=== PATIENT | male | born 1975 | race Caucasian/White ===

== ENCOUNTER 2018-01-26 20:27 | Emergency (ER) | payer OTHER, SELFPAY ==
[2018-01-26 20:28] VITALS: BP 140/89; PULSE 87; RESP 14; TEMP 37.5; O2SAT 97; BMI 24.7
--- NOTE | 2018-01-26 20:58 | ED.VISSUMM ---
- ER Visit Summary Date of Service: 01/26/18 Chief Complaint: Left index finger distal tip injury History of Present Illness: The patient is a 42 M [id number]. No significant past medical history. No significant prior left hand injury or surgery. Patient was moving pieces of metal equipment today at a friend's shop in [place] when he got his left index finger pinned against 2 pieces of metal and avulsed the tissue and the nail at the tip of the left index finger. No other injuries. This occurred around 4 PM today. This was not work-related. Patient has no idea when his last tetanus shot was and believes is been greater than 10 years. Physical Examination: Well-appearing middle-age male. Vital signs are stable afebrile. HEENT exam unremarkable. Neck nontender. Lungs clear to auscultation bilaterally. Heart regular rhythm no murmur. Abdomen soft nontender. Patient is moving all 4 extremities. They are neurovascularly intact. Specifically left index finger on the ulnar side of the tip of the left index finger he is avulsed the entire left index finger nail and most of the tissue on the dorsal surface and ulnar side of the tip of his left index finger. There is exposed bone. He has full flexion and extension of the left index finger. Also the wrist and hand. He has normal touch sensation. No foreign object seen. Neurologic exam normal. Test Results: Two-view x-ray left index finger shows exposed bone with tissue avulsion. No fracture no dislocation. No foreign body. Read by myself. Emergency Department Course and Treatment: Patient is a tissue avulsion of the left index finger with a completely avulsed left index nail. There is exposed bone. Digital block with Xylocaine. Once proper anesthetic was obtained. I cleaned the wound thoroughly with iodine irrigated and washed with saline. Explored the wound. No foreign body. No significant bleeding. There is a large tissue deficit at the radial side tip of the left index finger. I was able to approximate the skin and get good bone coverage using #5 4-0 Ethilon sutures. I remodeled the nail and placed back under the eponychial skin to allow the next nail to come out. Patient tolerated procedure well. Nurses cleaned, applied bacitracin and tube gauze. Along with aluminum splint. Patient was instructed on wound care and suture removal. Treatment Plan: Wound care. Suture removal 14 days. Keflex for 7 days. Follow-up with either Dr. olesya Esparza of plastic surgery Dr. Geno Agosto of orthopedics. Disposition: Discharge Impression: Left index finger complete soft tissue avulsion at the tip of with complete nail avulsion with exposed distal phalanx Complex left index finger laceration with repair This note was generated with [employer] dictation software. It may contain incorrect words, spelling, and punctuation that were not noted in review of the chart prior to signing ED Disposition - Plan for ED Patient: Chief Complaint: Upper Extremity Injury Referrals: NOT,DEFINED [NON-STAFF] -
[2018-01-26] MEDS: Diphth,Pertuss(Acell),Tet Vac 0.5 ML Vial IM (21:08)
--- NOTE | 2018-01-26 21:10 | RAD_ITS ---
STUDY: X-RAY - LEFT HAND, ATTENTION SECOND FINGER REASON FOR EXAM: Male, 42 years old. Injury. TECHNIQUE: 3 view(s) of the finger were obtained. COMPARISON: None. FINDINGS: Normal metacarpal head. Normal metacarpophalangeal joint. Normal proximal phalanx. Normal middle phalanx. Normal distal phalanx. Normal proximal interphalangeal joint. Normal distal interphalangeal joint. There is soft tissue amputation of the anteromedial tip of the second digit. RAD/Finger(s) Min 2 Views IMPRESSION: Soft tissue injury. No osseous abnormality. Electronically Signed: Rosamaria Zhou MD at 21:47 EDT Tel , Service support ,
--- NOTE | 2018-01-26 21:13 | ED.DCSUM_ITS ---
- ER Visit Summary Date of Service: 01/26/18 Chief Complaint: Left index finger distal tip injury History of Present Illness: The patient is a 42 M [id number]. No significant past medical history. No significant prior left hand injury or surgery. Patient was moving pieces of metal equipment today at a friend's shop in [place] when he got his left index finger pinned against 2 pieces of metal and avulsed the tissue and the nail at the tip of the left index finger. No other injuries. This occurred around 4 PM today. This was not work-related. Patient has no idea when his last tetanus shot was and believes is been greater than 10 years. Physical Examination: Well-appearing middle-age male. Vital signs are stable afebrile. HEENT exam unremarkable. Neck nontender. Lungs clear to auscultation bilaterally. Heart regular rhythm no murmur. Abdomen soft nonten erica. Patient is moving all 4 extremities. They are neurovascularly intact. Specifically left index finger on the ulnar side of the tip of the left index finger he is avulsed the entire left index finger nail and most of the tissue on the dorsal surface and ulnar side of the tip of his left index finger. There is exposed bone. He has full flexion and extension of the left index finger. Also the wrist and hand. He has normal touch sensation. No foreign object seen. Neurologic exam normal. Test Results: Two-view x-ray left index finger shows exposed bone with tissue avulsion. No fracture no dislocation. No foreign body. Read by myself. Emergency Department Course and Treatment: Patient is a tissue avulsion of the left index finger with a completely avulsed left index nail. There is exposed bone. Digital block with Xylocaine. Once proper anesthetic was obtained. I cleaned the wound thoroughly with iodine irrigated and washed with saline. Explored the wound. No foreign body. No significant bleeding. There is a large tissue deficit at the radial side tip of the left index finger. I was able to approximate the skin and get good bone coverage using #5 4-0 Ethilon sutures. I remodeled the nail and placed back under the eponychial skin to allow the next nail to come out. Patient tolerated procedure well. Nurses cleaned, applied bacitracin and tube gauze. Along with aluminum splint. Patient was instructed on wound care and suture removal. Treatment Plan: Wound care. Suture removal 14 days. Keflex for 7 days. Follow-up with either Dr. olesya Esparza of plastic surgery Dr. Geno Agosto of orthopedics. Disposition: Discharge Impression: Left index finger complete soft tissue avulsion at the tip of with complete nail avulsion with exposed distal phalanx Complex left index finger laceration with repair This note was generated with [employer] dictation software. It may contain incorrect words, spelling, and punctuation that were not noted in review of the chart prior to signing ED Disposition - Plan for ED Patient: Chief Complaint: Upper Extremity Injury Referrals: NOT,DEFINED [NON-STAFF] -
--- NOTE | 2018-01-26 22:11 | ED.DEP ---
ED Disposition - Plan for ED Patient: Disposition: Home or Assisted Living Chief Complaint: Upper Extremity Injury Prescriptions: Cephalexin [Keflex] 500 mg PO Q8 #20 cap Referrals: Celi Agosto DO [STAFF PHYSICIAN] - 1 Week Jose David Gold MD [STAFF PHYSICIAN] - 1 Week Additional Instructions: Ice and elevate. Tylenol and Motrin for pain. Limited [place] for severe pain. Keep skin clean, dry and covered at work. Change dressing daily. May leave current dressing on for the next 3 days if it stays dry and clean. Follow-up with either of orthopedics or Dr. Gold of plastic surgery for further evaluation. Suture removal in 14 days. Return if any signs of infection redness, pus, fever, red streaks or large swelling.
[2018-01-26 22:14] VITALS: BP 139/83; PULSE 62; RESP 18; O2SAT 100
[2018-01-26] MEDS: Cephalexin 250 MG Capsule 500 MG PO (22:21)
[2018-01-26] MEDS: HYDROcodone Bitartrate/Apap 5/325 Tablet PO (22:21)
== END 2018-01-26 22:24 | disposition home or self-care (01) ==
PROVIDERS: Emergency Provider Emergency Medicine
DX: S61.311A Laceration without foreign body of left index finger with damage to nail, initial encounter (principal); W23.0XXA Caught, crushed, jammed, or pinched between moving objects, initial encounter; Y93.9 Activity, unspecified; Y92.9 Unspecified place or not applicable; Y99.9 Unspecified external cause status; Z23 Encounter for immunization
CPT/HCPCS: 11760; 12002; 73140; 90471; 90715; 99284